=== PATIENT | female | born 1995 | race African-American/Black ===

== ENCOUNTER 2019-07-17 11:00 | Emergency (ER) | payer OTHER ==
[2019-07-17 11:31] LABS: RAPID STREP SCREEN Negative (Negative)
--- NOTE | 2019-07-17 12:29 | ED Physician Documentation ---
History of Present Illness - Stated complaint Stated Complaint: SORE THROAT - Chief complaint Chief Complaint: Heent - History obtained from History obtained from: Patient - History of Present Illness Timing: How many days ago (2) Pain level max: 4 Pain level now: 3 - Additonal information Additional information: 24-year-old female presents to the emergency department for sore throat for the past 2 to 3 days. She also noticed a swelling to the under side of her chin for the past 2 days. No fevers. No vomiting. No rhinorrhea or congestion. Worse with palpation. Worse with swallowing. Nothing makes it better. Was seen at the [facility] this morning for same. She states that she had vomiting at work and came here for evaluation. Review of Systems Constitutional: denies: Fever, Chills Cardiac: denies: Chest pain / pressure Respiratory: denies: Cough GI: reports: Nausea, Vomiting Skin: denies: Rash Musculoskeletal: denies: Neck pain, Back pain Neurologic: denies: Headache PD PAST MEDICAL HISTORY - Past Medical History Past Medical History: No - Past Surgical History Past Surgical History: No - Present Medications Home Medications: Ambulatory Orders Medication Instructions Recorded Confirmed Ondansetron Odt [Zofran] 4 mg TL Q6H PRN #4 tablet 07/17/19 - Allergies Allergies/Adverse Reactions: Allergies Allergy/AdvReac Type Severity Reaction Status Date / Time No Known Drug Allergies Allergy Verified 07/17/19 11:03 - Social History Does the pt smoke?: No Smoking Status: Never smoker - Immunizations Immunizations are current?: Yes PD ED PE NORMAL - Vitals Vital signs reviewed: Yes - General General: Alert and oriented X 3, No acute distress, Well developed/nourished - HEENT HEENT: PERRL, Ears normal, Moist mucous membranes, Pharynx benign, Other (1 x 1 cm submandibular swelling. Tender to palpation. Mobile. Does not move with swallowing. Does not move with movement of the tongue.) - Neck Neck: Supple, no meningeal sign, No adenopathy - Cardiac Cardiac: RRR, Strong equal pulses - Respiratory Respiratory: No respiratory distress, Clear bilaterally - Abdomen Abdomen: Soft, Non tender, Non distended - Derm Derm: Warm and dry, No rash - Neuro Neuro: Alert and oriented X 3 - Psych Psych: Normal mood, Normal affect Results - Vitals Vitals: Vital Signs - 24 hr 07/17/19 11:03 Temperature 36.9 C Heart Rate 75 Respiratory 14 Rate Blood Pressure 124/63 O2 Saturation 98 Oxygen O2 Source Room air - Labs Labs: Laboratory Tests 07/17/19 11:08 Group A Strep Rapid Negative PD MEDICAL DECISION MAKING - ED course Complexity details: reviewed results, re-evaluated patient, considered differential, d/w patient ED course: Patient with a negative strep test. No evidence of abscess. No evidence of thyroglossal duct cyst. Likely that this is a reactive lymph node. We will h ave her follow-up with her doctor within 1 to 2 weeks for recheck. If it is still present, they may consider an ultrasound at that time. Patient counseled regarding signs and symptoms for which I believe and urgent re-evaluation would be necessary. Patient with good understanding of and agreement to plan and is comfortable going home at this time This document was made in part using voice recognition software. While efforts are made to proofread this document, sound alike and grammatical errors may occur. Departure - Departure Disposition: 01 Home, Self Care Clinical Impression: Lymphadenitis Condition: Good Instructions: ED Cervical Adenitis No Abx Tx Follow-Up: your,doctor in 1 week [Other] Prescriptions: Ondansetron Odt [Zofran] 4 mg TL Q6H PRN #4 tablet PRN Reason: Nausea / Vomiting Comments: Return if you worsen. Follow-up with your doctor within 1 week. If the swelling is still present, they may want to perform an ultrasound for further evaluation present this should decrease on its own. It is likely reactive to your illness.
[2019-07-17 12:38] VITALS: BP 105/63
== END 2019-07-17 12:38 | disposition home or self-care (01) ==
LOC: ED 11:00
DX: I88.9 Nonspecific lymphadenitis, unspecified (principal); R11.2 Nausea with vomiting, unspecified
CPT/HCPCS: 87070; 87430; 99283; 99284

== ENCOUNTER 2020-11-09 12:10 | Emergency (ER) | payer OTHER ==
[2020-11-09 12:50] LABS: BILIRUBIN,URINE NEGATIVE (NEGATIVE); GLUCOSE, URINE (UA) NEGATIVE (NEGATIVE); KETONES,URINE (UA) NEGATIVE (NEGATIVE); LEUKOCYTE ESTERASE, URINE NEGATIVE (NEGATIVE); NITRITE,URINE NEGATIVE (NEGATIVE); OCCULT BLOOD,URINE NEGATIVE (NEGATIVE); PH,URINE 6.5 PH (5.0-7.5); PROTEIN,URINE NEGATIVE (NEGATIVE); UROBILINOGEN,URINE 0.2 (NORMAL) E.U./dL (NORMAL)
[2020-11-09 12:51] LABS: CLARITY,URINE CLEAR (CLEAR)
[2020-11-09 12:52] LABS: HCG UR QUAL NEGATIVE
[2020-11-09 12:54] LABS: BASOPHILS % (AUTO) 0.8 %; EOSINOPHILS # (AUTO) 0.2 10^3/uL (0.0-0.7); HCT - HEMATOCRIT 41.9 % (37.0-47.0); HGB - HEMOGLOBIN 13.9 g/dL (12.0-16.0); LYMPHOCYTES # (AUTO) 1.6 10^3/uL (1.5-3.5); LYMPHOCYTES % (AUTO) 31.3 %; MEAN CORPUSCULAR HEMOGLOBIN 29.1 pg (27.0-31.0); MEAN CORPUSCULAR HGB CONC 33.2 g/dL (32.0-36.0); MEAN CORPUSCULAR VOLUME 87.8 fL (81.0-99.0); MEAN PLATELET VOLUME 11.1 fL (7.9-10.8); MONOCYTES # (AUTO) 0.4 10^3/uL (0.0-1.0); MONOCYTES % (AUTO) 7.9 %; NEUTROPHILS # (AUTO) 2.9 10^3/uL (1.5-6.6); NEUTROPHILS % (AUTO) 56.6 %; PLT - PLATELET COUNT 197 10^3/uL (130-450); RED BLOOD COUNT 4.77 10^6/uL (4.20-5.40); RED CELL DISTRIBUTION WIDTH 12.8 % (12.0-15.0); WHITE BLOOD COUNT 5.1 x10^3/uL (4.8-10.8)
[2020-11-09 13:14] LABS: ALBUMIN 4.6 g/dL (3.2-5.5); ALBUMIN/GLOBULIN RATIO 1.2 (1.0-2.2); BILIRUBIN,TOTAL 0.8 mg/dL (0.2-1.0); CALCIUM 9.3 mg/dL (8.5-10.3); CREATININE 0.9 mg/dL (0.4-1.0); POTASSIUM 3.7 mmol/L (3.5-5.0); TOTAL PROTEIN 8.3 g/dL (6.7-8.2)
--- NOTE | 2020-11-09 13:23 | ED Physician Documentation ---
PD HPI ABD PAIN - Stated complaint Stated Complaint: STOMACH PX - Chief complaint Chief Complaint: Abd Pain - History obtained from History obtained from: Patient - Additional information Additional information: Previously healthy 25-year-old woman with no history of abdominal surgeries presents with feeling of constipation and left-sided and lower abdominal pain for the last 2 weeks despite taking MiraLAX, some laxative pills and magnesium citrate which did result in a variety of liquidy bowel movements but no relief of the pain and cramping. She is nauseous but has not vomited. Review of Systems Constitutional: reports: Reviewed and negative Ears: reports: Reviewed and negative Nose: reports: Reviewed and negative Throat: reports: Reviewed and negative Cardiac: reports: Reviewed and negative PD PAST MEDICAL HISTORY - Past Surgical History Past Surgical History: No - Present Medications Home Medications: Ambulatory Orders Medication Instructions Recorded Confirmed Ibuprofen [Motrin] 800 mg PO Q8H PRN #30 tablet 11/09/20 - Allergies Allergies/Adverse Reactions: Allergies Allergy/AdvReac Type Severity Reaction Status Date / Time No Known Drug Allergies Allergy Verified 11/09/20 12:19 - Social History Does the pt smoke?: No Smoking Status: Never smoker - Immunizations Immunizations are current?: Yes PD ED PE NORMAL - Vitals Vital signs reviewed: Yes - General General: Alert and oriented X 3, No acute distress - Cardiac Cardiac: RRR, No murmur - Respiratory Respiratory: No respiratory distress, Clear bilaterally - Abdomen Abdomen: Normal bowel sounds, Soft, Other (Mild left-sided and pelvic tenderness without surgical signs) - Back Back: No CVA TTP, No spinal TTP - Derm Derm: Normal color, Warm and dry - Neuro Neuro: Alert and oriented X 3, Normal speech Results - Vitals Vitals: Vital Signs - 24 hr 11/09/20 11/09/20 11/09/20 12:15 14:26 17:02 Temperature 36.5 C 37.0 C 37.0 C Heart Rate 110 H 71 70 Respiratory 16 18 16 Rate Blood Pressure 130/74 115/74 116/72 O2 Saturation 99 98 100 Oxygen O2 Source Room air - Labs Labs: Laboratory Tests 11/09/20 11/09/20 11/09/20 12:35 12:50 12:50 WBC 5.1 RBC 4.77 Hgb 13.9 Hct 41.9 MCV 87.8 MCH 29.1 MCHC 33.2 RDW 12.8 Plt Count 197 MPV 11.1 H Neut # (Auto) 2.9 Lymph # (Auto) 1.6 [place] # (Auto) 0.4 Eos # (Auto) 0.2 Baso # (Auto) 0.0 Absolute Nucleated RBC 0.00 Nucleated RBC % 0.0 Sodium 136 Potassium 3.7 Chloride 99 L Carbon Dioxide 27 Anion Gap 10.0 BUN 11 Creatinine 0.9 Estimated GFR (MDRD) 92 Glucose 80 Calcium 9.3 Total Bilirubin 0.8 AST 16 ALT 15 Alkaline Phosphatase 51 Total Protein 8.3 H Albumin 4.6 Globulin 3.7 Albumin/Globulin Ratio 1.2 Lipase 29 Urine Color YELLOW Urine Clarity CLEAR Urine pH 6.5 Ur Specific [place] 1.025 Urine Protein NEGATIVE Urine Glucose (UA) NEGATIVE Urine Ketones NEGATIVE Urine Occult Blood NEGATIVE Urine Nitrite NEGATIVE Urine Bilirubin NEGATIVE Urine Urobilinogen 0.2 (NORMAL) Ur Leukocyte Esterase NEGATIVE Ur Microscopic Review NOT INDICATED Urine Culture Comments NOT INDICATED Urine HCG, Qual NEGATIVE PD MEDICAL DECISION MAKING - ED course ED course: 25-year-old woman with pelvic and side pain. Her concern is for constipation, that said have not been helpful. Work-up demonstrates normal blood work and negative test. CT demonstrate a small right ovarian cyst but significant enlarged uterus. She states she has regular menses once a month, they are heavy at the beginning but then taper off. This was followed by a pelvic ultrasound showing fibroid uterus, suspect this is causative of her pelvic cramping symptoms. Departure - Departure Disposition: 01 Home, Self Care Clinical Impression: Fibroids Abdominal pain Qualifiers: Abdominal location: lower abdomen, unspecified Qualified Code(s): R10.30 - Lower abdominal pain, unspecified Condition: Good Record reviewed to determine appropriate education?: Yes Instructions: ED Fibroids Prescriptions: Ibuprofen [Motrin] 800 mg PO Q8H PRN #30 tablet PRN Reason: PAIN &/OR FEVER Comments: You were seen today for pelvic cramping and sensation of constipation. The CT did not show significant stool load, but there was an abnormality of the uterus and this was followed by a pelvic ultrasound demonstrating multiple fibroids, the largest is pedunculated fibroid measuring 4.6 x 4 x 4 cm. [place]. Return for new or worsening symptoms. Discharge Date/Time: 11/09/20 17:02
[2020-11-09] MEDS ORDERED: IOVERSOL 320 100 ML VIAL IVP ONE ×2 (13:30→13:47)
--- NOTE | 2020-11-09 14:13 | CT Report ---
PROCEDURE: Abdomen/Pelvis W INDICATIONS: iv only, low abd pain CONTRAST: IV CONTRAST: Optiray 320 ml: 100 PO CONTRAST: *NO PO CONTRAST TECHNIQUE: After the administration of nonionic IV contrast, 5 mm thick sections acquired from the diaphragms to the symphysis. 5 mm thick coronal and sagittal reformats were acquired. For radiation dose reducti on, the following was used: automated exposure control, adjustment of mA and/or kV according to anny ent size. COMPARISON: None. FINDINGS: Image quality: Excellent. ABDOMEN: Lung bases: Lung bases are clear. Heart size is normal. Solid organs: Liver and spleen are normal in size and enhancement. Gallbladder is partially collaps ed at the time of this study. Biliary system is non dilated. Pancreas enhances normally. No adrena l nodules. Kidneys demonstrate normal size and enhancement, without hydronephrosis. Peritoneum and bowel: Bowel loops demonstrate normal wall thickness and caliber. No free fluid or a ir. A normal appendix is incidentally noted. Nodes and vessels: No retroperitoneal or mesenteric adenopathy by size criteria. Aorta and inferior vena cava are normal in size. Miscellaneous: No ventral hernias. PELVIS: Genitourinary: Bladder wall thickness is normal. The uterine cervix demonstrates an irregular appear ance. There is a rim-enhancing cyst seen of the right ovary that measures up to 1.9 cm. There is a sm all amount of free pelvic fluid seen, which is considered to be within physiologic limits. Miscellaneous: No inguinal hernias or adenopathy. Incidental note is made of body ornamentation art ifact. Bones: No suspicious bony lesions. No vertebral body compression fractures. Mild levoconvex scoli otic curvature is seen. IMPRESSION: Normal appendix. There is irregularity seen of the uterine cervix. If clinically appropriate, please correlate with ph ysical examination findings. There is an apparent right ovarian hemorrhagic cyst that measures up to 1.9 cm. If clinically approp riate, please consider a short-term follow-up ultrasound in 6 weeks to ensure resolution/improvement. Reviewed by: Reyes Bangura MD on 11/09/2020 1:12 PM ALEXANDRO Approved by: Reyes Bangura MD on 11/09/2020 1:12 PM AKDT Station ID: [id number]
[2020-11-09 17:03] VITALS: BP 116/72
--- NOTE | 2020-11-09 17:32 | Ultrasound Report ---
PROCEDURE: Pelvic w/Transvag+Doppler Comp INDICATIONS: pelvic pain TECHNIQUE: Real-time scanning was performed of the pelvic organs, with image documentation. Additional endovagi nal scanning was necessary due to incomplete visualization of the adnexal and endometrial structures by transabdominal scanning. COMPARISON: Correlation is made with the [facility] abdomen and pelvis CT, 11/09/2020. FINDINGS: A small amount of free pelvic fluid is seen, which is considered to be within physiologic limits. Uterus: Uterus is prominent in size at 14.5 x 4.1 x 4.6 cm. The uterus appears retroflexed and appea rs twisted. The endometrium measures 14 mm in combined thickness. Low echogenicity uterine lesions are seen, which are attributed to fibroids and which measure as foll ows: Right anterior uterus, intramural, 1.6 x 1.4 x 1.7 cm Left posterior uterus, intramural, 1.2 x 1.2 x 1.5 cm Mid uterus, pedunculated, adjacent to the cervix, 4.6 x 4 x 4 cm Ovaries: The right ovary is not definitely seen. The left ovary is unremarkable measuring 2.6 x 1.6 x 2.5. IMPRESSION: There is a 4.6 cm exophytic fibroid seen adjacent to the cervix, which likely explains the CT appeara nce. No jaycee cervical mass can be seen. Reviewed by: Reyes Bangura MD on 11/09/2020 4:31 PM ALEXANDRO Approved by: Reyes Bangura MD on 11/09/2020 4:31 PM ALEXADNRO Station ID: [id number]
== END 2020-11-09 17:02 | disposition home or self-care (01) ==
LOC: ED 12:10
DX: D25.1 Intramural leiomyoma of uterus (principal); D26.0 Other benign neoplasm of cervix uteri; N83.201 Unspecified ovarian cyst, right side
CPT/HCPCS: 36415; 74177; 76830; 76856; 80053; 81003; 81025; 83690; 85025; 93975; 99284; Q9967; 81001; 87086

== ENCOUNTER 2021-12-11 12:49 | Emergency (ER) | payer OTHER ==
[2021-12-11] MEDS ORDERED: KETOROLAC 30 MG/ML VIAL IVP STA (13:47)
[2021-12-11] MEDS ORDERED: SODIUM CHLORIDE 0.9% 1,000 ML IV STA (13:47)
--- NOTE | 2021-12-11 13:48 | ED Physician Documentation ---
History of Present Illness - Stated complaint Stated Complaint: HEAD/NECK PX - Chief complaint Chief Complaint: General - Additonal information Additional information: 26-year-old female presents emergency department for evaluation of fatigue generalized body aches and a headache. Symptoms began yesterday evening. She denies any fever then but is noted to be 1-1.9 here. She has had no nausea or vomiting. No nuchal rigidity. No recent travel. Denies any cough. Currently on her menstrual cycle. No pertinent surgical history. She recently returned from [place]. Denies any obvious sick contacts. She is vaccinated though not boosted for COVID-19. Review of Systems Constitutional: reports: Fever, Myalgias, Fatigue Eyes: reports: Reviewed and negative Ears: reports: Reviewed and negative Nose: reports: Reviewed and negative Cardiac: denies: Chest pain / pressure, Palpitations Respiratory: denies: Dyspnea, Cough GI: denies: Abdominal Pain, Nausea, Vomiting : reports: Other (Currently on menstrual cycle). denies: Dysuria Skin: denies: Rash, Lesions Musculoskeletal: reports: Neck pain, Back pain Neurologic: reports: Headache. denies: Numbness, Difficulty speaking, Near syncope, Syncope, Seizure, Confused Psychiatric: reports: Reviewed and negative PD PAST MEDICAL HISTORY - Past Surgical History Past Surgical History: No - Present Medications Home Medications: Ambulatory Orders Medication Instructions Recorded Confirmed Ibuprofen [Motrin] 800 mg PO Q8H PRN #30 tablet 11/09/20 - Allergies Allergies/Adverse Reactions: Allergies Allergy/AdvReac Type Severity Reaction Status Date / Time No Known Drug Allergies Allergy Verified 12/11/21 13:05 - Social History Does the pt smoke?: No Smoking Status: Never smoker - Immunizations Immunizations are current?: Yes PD ED PE NORMAL - General General: Alert and oriented X 3, No acute distress, Well developed/nourished - HEENT HEENT: Atraumatic, Ears normal, Moist mucous membranes, Pharynx benign - Neck Neck: Supple, no meningeal sign, No adenopathy, Other (Negative Brudinski, negative Kernig's) - Cardiac Cardiac: RRR, No murmur - Respiratory Respiratory: No respiratory distress, Clear bilaterally - Abdomen Abdomen: Normal bowel sounds, Soft - Back Back: No CVA TTP, No spinal TTP - Derm Derm: Normal color, No rash - Extremities Extremities: No deformity, No tenderness to palpate, Normal ROM s pain - Neuro Neuro: Alert and oriented X 3, 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 Eye Opening: Spontaneous Motor: Obeys Commands Verbal: Oriented GCS Score: 15 Results - Vitals Vitals: Vital Signs - 24 hr 12/11/21 12/11/21 12/11/21 13:05 13:41 14:53 Temperature 36.9 C 38.8 C H 37.5 C Heart Rate 83 91 85 Respiratory 16 18 18 Rate Blood Pressure 115/57 L 113/65 104/66 O2 Saturation 98 100 98 12/11/21 15:00 Temperature Heart Rate 82 Respiratory Rate Blood Pressure 101/69 O2 Saturation 97 Oxygen O2 Source Room air - Labs Labs: Laboratory Tests 12/11/21 12/11/21 12/11/21 13:55 13:55 13:55 WBC 3.4 L RBC 4.37 Hgb 12.3 Hct 38.0 MCV 87.0 MCH 28.1 MCHC 32.4 RDW 12.5 Plt Count 167 MPV 11.3 H Neut # (Auto) 2.5 Lymph # (Auto) 0.4 L [place] # (Auto) 0.5 Eos # (Auto) 0.0 Baso # (Auto) 0.0 Absolute Nucleated RBC 0.00 Nucleated RBC % 0.0 Sodium 133 L Potassium 3.7 Chloride 100 L Carbon Dioxide 25 Anion Gap 8.0 BUN 7 Creatinine 0.7 Estimated GFR (MDRD) 122 Glucose 88 Lactic Acid 0.7 Calcium 8.7 Total Bilirubin 0.7 AST 17 ALT 14 Alkaline Phosphatase 48 Total Protein 7.8 Albumin 4.3 Globulin 3.5 Albumin/Globulin Ratio 1.2 Urine Color Urine Clarity Urine pH Ur Specific [place] Urine Protein Urine Glucose (UA) Urine Ketones Urine Occult Blood Urine Nitrite Urine Bilirubin Urine Urobilinogen Ur Leukocyte Esterase Urine RBC Urine WBC Ur Squamous Epith Cells Urine Bacteria Urine Culture Comments Nasal Adenovirus (PCR) Nasal B. parapertussis DNA (PCR) Nasal Coronavir 229E PCR Nasal Coronavir HKU1 PCR Nasal Coronavir NL63 PCR Nasal Coronavir OC43 PCR Nasal Enterovir/Rhinovir PCR Nasal Influenza B PCR Nasal Influenza A PCR Nasal Parainfluen 1 PCR Nasal Parainfluen 2 PCR Nasal Parainfluen 3 PCR Nasal Parainfluen 4 PCR Nasal RSV (PCR) Nasal B.pertussis DNA PCR Nasal C.pneumoniae (PCR) Hank Human Metapneumo PCR Nasal M.pneumoniae (PCR) Nasal SARS-CoV-2 (PCR) 12/11/21 12/11/21 13:55 14:36 WBC RBC Hgb Hct MCV MCH MCHC RDW Plt Count MPV Neut # (Auto) Lymph # (Auto) [place] # (Auto) Eos # (Auto) Baso # (Auto) Absolute Nucleated RBC Nucleated RBC % Sodium Potassium Chloride Carbon Dioxide Anion Gap BUN Creatinine Estimated GFR (MDRD) Glucose Lactic Acid Calcium Total Bilirubin AST ALT Alkaline Phosphatase Total Protein Albumin Globulin Albumin/Globulin Ratio Urine Color YELLOW Urine Clarity HAZY Urine pH 6.0 Ur Specific [place] 1.010 Urine Protein NEGATIVE Urine Glucose (UA) NEGATIVE Urine Ketones NEGATIVE Urine Occult Blood LARGE H Urine Nitrite NEGATIVE Urine Bilirubin NEGATIVE Urine Urobilinogen 0.2 (NORMAL) Ur Leukocyte Esterase NEGATIVE Urine RBC 11-25 H Urine WBC 0-3 Ur Squamous Epith Cells FEW Squamous Urine Bacteria Rare Urine Culture Comments NOT INDICATED Nasal Adenovirus (PCR) NOT DETECTED Nasal B. parapertussis DNA (PCR) NOT DETECTED Nasal Coronavir 229E PCR NOT DETECTED Nasal Coronavir HKU1 PCR NOT DETECTED Nasal Coronavir NL63 PCR NOT DETECTED Nasal Coronavir OC43 PCR NOT DETECTED Nasal Enterovir/Rhinovir PCR NOT DETECTED Nasal Influenza B PCR NOT DETECTED Nasal Influenza A PCR NOT DETECTED Nasal Parainfluen 1 PCR NOT DETECTED Nasal Parainfluen 2 PCR NOT DETECTED Nasal Parainfluen 3 PCR NOT DETECTED Nasal Parainfluen 4 PCR NOT DETECTED Nasal RSV (PCR) NOT DETECTED Nasal B.pertussis DNA PCR NOT DETECTED Nasal C.pneumoniae (PCR) NOT DETECTED Hank Human Metapneumo PCR NOT DETECTED Nasal M.pneumoniae (PCR) NOT DETECTED Nasal SARS-CoV-2 (PCR) DETECTED A - Rads (name of study) cxr Radiology: Final report received (no acute cardiopulmonary process) PD MEDICAL DECISION MAKING - ED course Complexity details: reviewed results, re-evaluated patient, considered differential, d/w patient ED course: 26 -year-old female presents emergency department for evaluation of headache fever generalized body aches neck and back pain. Symptoms began yesterday evening. Here in the emergency department she is modestly febrile at 102. Chest x-ray was without acute focal findings. Screening blood work shows a mild leukopenia often seen in COVID-19. Her respiratory PCR panel is positive for COVID-19. Clinically she appears well without hypotension or tachycardia. There is no nuchal rigidity or suggestion of meningitis therefore an LP was deferred. We discussed routine care and management of COVID-19 infection. Advised isolation for about the next week. Emergent return precautions otherwise discussed Departure - Departure Disposition: 01 Home, Self Care Clinical Impression: COVID-19, Febrile illness, acute Condition: Stable Record reviewed to determine appropriate education?: Yes Instructions: ED Viral Syndrome Comments: Anali you were seen today in the emergency department for fever, body aches headache and neck pain. You have tested positive for COVID-19 infection. Because you are vaccinated you are likely to do well. I recommend isolating at home for about the next week. You can take [id number] medication such as Tylenol or ibuprofen for any body aches and discomfort. It is important that you stay well-hydrated and drink plenty of fluids. If you find that you have worsening symptoms, develop worsening fevers have any difficulty breathing or uncontrolled belly pain or vomiting then please return to the ER for second evaluation
[2021-12-11 14:00] LABS: BASOPHILS % (AUTO) 0.6 %; EOSINOPHILS % (AUTO) 1.2 %; HGB - HEMOGLOBIN 12.3 g/dL (12.0-16.0); LYMPHOCYTES # (AUTO) 0.4 10^3/uL (1.5-3.5); LYMPHOCYTES % (AUTO) 10.8 %; MEAN CORPUSCULAR HEMOGLOBIN 28.1 pg (27.0-31.0); MEAN CORPUSCULAR HGB CONC 32.4 g/dL (32.0-36.0); MEAN PLATELET VOLUME 11.3 fL (7.9-10.8); MONOCYTES # (AUTO) 0.5 10^3/uL (0.0-1.0); MONOCYTES % (AUTO) 14.9 %; NEUTROPHILS # (AUTO) 2.5 10^3/uL (1.5-6.6); NEUTROPHILS % (AUTO) 72.2 %; PLT - PLATELET COUNT 167 10^3/uL (130-450); RED BLOOD COUNT 4.37 10^6/uL (4.20-5.40); RED CELL DISTRIBUTION WIDTH 12.5 % (12.0-15.0); WHITE BLOOD COUNT 3.4 x10^3/uL (4.8-10.8)
[2021-12-11 14:13] LABS: ALBUMIN 4.3 g/dL (3.2-5.5); ALBUMIN/GLOBULIN RATIO 1.2 (1.0-2.2); BILIRUBIN,TOTAL 0.7 mg/dL (0.2-1.0); CALCIUM 8.7 mg/dL (8.5-10.3); CREATININE 0.7 mg/dL (0.4-1.0); POTASSIUM 3.7 mmol/L (3.5-5.0); TOTAL PROTEIN 7.8 g/dL (6.7-8.2)
--- NOTE | 2021-12-11 14:27 | XRAY Report ---
PROCEDURE: Chest 1 View X-Ray INDICATIONS: fever TECHNIQUE: One view of the chest was acquired. COMPARISON: None FINDINGS: Surgical changes and devices: None. Lungs and pleura: No pleural effusions or pneumothorax. Lungs are clear. Mediastinum: Mediastinal contours appear normal. Heart size is normal. Bones and chest wall: No suspicious bony lesions. Overlying soft tissues appear unremarkable. IMPRESSION: No acute cardiopulmonary disease process. Reviewed by: Cristina Guardado MD, PhD on 12/11/2021 2:25 PM PDT Approved by: Cristina Guardado MD, PhD on 12/11/2021 2:25 PM PDT Station ID: [id number]
[2021-12-11] MEDS ORDERED: ACETAMINOPHEN 325 MG TABLET PO STA (14:38)
[2021-12-11 14:52] LABS: BILIRUBIN,URINE NEGATIVE (NEGATIVE); GLUCOSE, URINE (UA) NEGATIVE (NEGATIVE); KETONES,URINE (UA) NEGATIVE (NEGATIVE); LEUKOCYTE ESTERASE, URINE NEGATIVE (NEGATIVE); NITRITE,URINE NEGATIVE (NEGATIVE); OCCULT BLOOD,URINE LARGE (NEGATIVE); PROTEIN,URINE NEGATIVE (NEGATIVE); UROBILINOGEN,URINE 0.2 (NORMAL) E.U./dL (NORMAL)
[2021-12-11 14:53] LABS: CLARITY,URINE HAZY (CLEAR)
[2021-12-11 15:11] LABS: CORONAVIRUS 229E-RESP PCR NOT DETECTED; CORONAVIRUS HKU1-RESP PCR NOT DETECTED; CORONAVIRUS NL63-RESP PCR NOT DETECTED; CORONAVIRUS OC43-RESP PCR NOT DETECTED; HUMAN METAPNEUMOVIRUS NOT DETECTED; INFLUENZA A- RESP PCR PANEL NOT DETECTED; PARAINFLUENZA VIRUS 1 NOT DETECTED; RHINOVIRUS/ENTEROVIRUS NOT DETECTED
[2021-12-11 15:12] LABS: B. PARAPERTUSSIS- RESP PCR PAN NOT DETECTED; B. PERTUSSIS- RESP PCR PANEL NOT DETECTED; C. PNEUMONIAE- RESP PCR PANEL NOT DETECTED; INFLUENZA B - RESP PCR PANEL NOT DETECTED; M. PNEUMONIAE- RESP PCR PANEL NOT DETECTED; PARAINFLUENZA VIRUS 2 NOT DETECTED; PARAINFLUENZA VIRUS 3 NOT DETECTED; PARAINFLUENZA VIRUS 4 NOT DETECTED; RSV- RESP PCR PANEL NOT DETECTED
[2021-12-11 15:12] LABS: BACTERIA,URINE Rare /HPF (None Seen); SQUAMOUS EPITHELIAL CELL,UR FEW Squamous (<= Few); WBC,URINE 0-3 /HPF (0-5)
[2021-12-11 15:15] LABS: SARS-CoV-2 -RESP PCR PANEL DETECTED
[2021-12-11 15:17] VITALS: BP 101/69
== END 2021-12-11 15:47 | disposition home or self-care (01) ==
LOC: ED 12:49
DX: U07.1 COVID-19 (principal)
CPT/HCPCS: 36415; 71045; 80053; 81001; 83605; 85025; 87040; 87633; 96374; 99282; 99284; A9270; 87086